=== PATIENT | female | born 2000 | race Caucasian/White ===

== ENCOUNTER 2022-06-18 14:15 | Emergency (ER) | payer BC ==
[~2022-06-18] VITALS: Ht 160 cm; Wt 111.1 kg
[2022-06-18 14:24] VITALS: BP 130/90
--- NOTE | 2022-06-18 14:38 | ED Abdominal Pain ---
General Chief Complaint: OB < 20 WEEKS Stated Complaint: | CRAMPING | ABD PAIN Nursing Triage Note: PT AMBULATORY TO ROOM WITH PT MOTHER. STATES SHE TOOK TESTS AT HOME LAST NIGHT AND TODAY, ALL POSITIVE. STATES SHE HAS BEEN HAVING LOW PELVIC CRAMPING FOR 1 WEEK THAT HAS GOTTEN WORSE. STATES SHE IS AT LEAST 5 WEEKS BUT STATES SHE COULD BE FURTHER ALONG DUE TO ABNORMAL MENSTRUAL CYCLES Source of Information: Patient Exam Limitations: No Limitations History of Present Illness Date Seen by Provider: Jun 18, 2022 Time Seen by Provider: 14:36 Initial Comments Patient is a 21-year-old female who is G1, P0 who presents ED for lower pelvic pain. She states she did a urine test last night which tested positive. Patient Went to [place] urgent care tested positive by urine. Patient reports intermittent sharp and dull lower pelvic pain since Tuesday. Pain appears to be located suprapubic and radiation to the left and right lower quadrant. Denies of any vaginal bleeding, vaginal discharge or urinary symptoms. She did have a negative urinalysis for infection today. Denies of any vomiting, diarrhea. She did feel nauseous. Denies chest pain, shortness of breath, sore throat, headache, dizziness. Patient last menstrual cycle was 1 month ago. Allergies and Home Medications Allergies Coded Allergies: No Known Drug Allergies (Unverified , 06/18/22) Patient Home Medication List Home Medication List Reviewed: Yes Review of Systems Review of Systems Constitutional: No chills, No diaphoresis, No malaise, No weakness EENTM: No Ear Pain, No Mouth Pain, No Mouth Swelling Respiratory: Denies Orthopnea Cardiovascular: Denies Chest Pain Gastrointestinal: Denies Abdomen Distended; Abdominal Pain Genitourinary: Denies Burning, Denies Discharge, Denies Drainage, Denies Frequency, Denies Flank Pain, Denies Hematuria Musculoskeletal: No back pain, No joint pain All Other Systems Reviewed Negative Unless Noted: Yes Physical Exam Vital Signs Vital Signs - First Documented 06/18/22 14:24 Temp 36.7 Pulse 71 Resp 16 B/P (MAP) 130/90 (103) Pulse Ox 98 Capillary Refill : Height/Weight/BMI Height: '" Weight: lbs. oz. kg; 43.00 BMI Method: General Appearance: WD/WN, no apparent distress HEENT: PERRL/EOMI, normal ENT inspection, TMs normal, pharynx normal Neck: non-tender, full range of motion, supple Respiratory: chest non-tender, lungs clear, normal breath sounds, no respiratory distress, no accessory muscle use Cardiovascular: regular rate, rhythm, no edema, no gallop, no JVD Gastrointestinal: normal bowel sounds, soft, no organomegaly, no pulsatile mass, tenderness (Suprapubic and left lower quadrant tenderness. Normal bowel sounds throughout) Extremities: normal range of motion, non-tender, normal inspection, no pedal edema Back: normal inspection, no CVA tenderness Neurologic/Psychiatric: custom grinder II-XII nml as tested, no motor/sensory deficits, alert, normal mood/affect, oriented x 3 Skin: normal color, warm/dry Progress/Results/Core Measures Results/Orders Lab Results Laboratory Tests Test 06/18/22 14:44 06/18/22 14:48 Range/Units Urine Color YELLOW Urine Clarity CLEAR Urine pH 6.0 5-9 Urine Specific [place] 1.015 L 1.016-1.022 Urine Protein NEGATIVE NEGATIVE Urine Glucose (UA) NEGATIVE NEGATIVE Urine Ketones NEGATIVE NEGATIVE Urine Nitrite NEGATIVE NEGATIVE Urine Bilirubin NEGATIVE NEGATIVE Urine Urobilinogen 0.2 < = 1.0 MG/DL Urine Leukocyte Esterase NEGATIVE NEGATIVE Urine RBC (Auto) TRACE-I H NEGATIVE Urine RBC 0-2 /HPF Urine WBC NONE /HPF Urine Squamous Epithelial Cells RARE /HPF Urine Crystals NONE /LPF Urine Bacteria NEGATIVE /HPF Urine Casts NONE /LPF Urine Mucus NEGATIVE /LPF Urine Culture Indicated NO Urine Test POSITIVE NEGATIVE White Blood Count 9.4 4.3-11.0 10^3/uL Red Blood Count 4.92 3.80-5.11 10^6/uL Hemoglobin 13.8 11.5-16.0 g/dL Hematocrit 42 35-52 % Mean Corpuscular Volume 86 80-99 fL Mean Corpuscular Hemoglobin 28 25-34 pg Mean Corpuscular Hemoglobin Concent 33 32-36 g/dL Red Cell Distribution Width 13.1 10.0-14.5 % Platelet Count 313 130-400 10^3/uL Mean Platelet Volume 9.4 9.0-12.2 fL Immature Granulocyte % (Auto) 0 % Neutrophils (%) (Auto) 59 42-75 % Lymphocytes (%) (Auto) 27 12-44 % Monocytes (%) (Auto) 8 0-12 % Eosinophils (%) (Auto) 5 0-10 % Basophils (%) (Auto) 0 0-10 % Neutrophils # (Auto) 5.5 1.8-7.8 X 10^3 Lymphocytes # (Auto) 2.5 1.0-4.0 X 10^3 Monocytes # (Auto) 0.8 0.0-1.0 X 10^3 Eosinophils # (Auto) 0.5 H 0.0-0.3 10^3/uL Basophils # (Auto) 0.0 0.0-0.1 10^3/uL Immature Granulocyte # (Auto) 0.0 0.0-0.1 10^3/uL Sodium Level 139 135-145 MMOL/L Potassium Level 3.9 3.6-5.0 MMOL/L Chloride Level 108 H 98-107 MMOL/L Carbon Dioxide Level 20 L 21-32 MMOL/L Anion Gap 11 5-14 MMOL/L Blood Urea Nitrogen 8 7-18 MG/DL Creatinine 0.65 0.60-1.30 MG/DL Estimat Glomerular Filtration Rate 128 BUN/Creatinine Ratio 12 Glucose Level 85 70-105 MG/DL Calcium Level 9.3 8.5-10.1 MG/DL Corrected Calcium 9.2 8.5-10.1 MG/DL Total Bilirubin 0.4 0.1-1.0 MG/DL Aspartate Amino Transf (AST/SGOT) 19 5-34 U/L Alanine Aminotransferase (ALT/SGPT) 18 0-55 U/L Alkaline Phosphatase 63 40-136 U/L Total Protein 7.0 6.4-8.2 GM/DL Albumin 4.1 3.2-4.5 GM/DL Lipase 17 8-78 U/L Human Chorionic Gonadotropin, Quant 109 H <5 MIU/ML Micro Results Microbiology 06/18/22 Wet Prep - Final, Complete My Orders Orders - ERIKA SHEPARD Ua Culture If Indicated (06/18/22 14:22) Hcg,Qualitative Urine (06/18/22 14:27) Cbc With Automated Diff (06/18/22 14:33) Comprehensive Metabolic Panel (06/18/22 14:33) Lipase (06/18/22 14:33) Hcg,Quantitative (06/18/22 14:33) Wet Prep (06/18/22 14:38) Neisseria Gonorrhea Swab (06/18/22 14:38) Chlamydia Trachomatis Swab (06/18/22 14:38) Us Ob<14 Wks Sngle W/Transvag (06/18/22 14:33) Acetaminophen Tablet (Tylenol Tablet) (06/18/22 16:30) Medications Given in ED Current Medications Medications Dose Ordered Sig/Vilma Route Start Time Stop Time Status Last Admin Dose Admin Acetaminophen 1,000 mg ONCE ONCE PO 06/18/22 16:30 06/18/22 16:30 DC 06/18/22 16:25 1,000 MG Vital Signs/I&O 06/18/22 14:24 Temp 36.7 Pulse 71 Resp 16 B/P (MAP) 130/90 (103) Pulse Ox 98 Blood Pressure Mean: 103 Departure Communication (PCP) Patient with lower pelvic discomfort since Tuesday. Intermittent dull/sharp pain suprapubic region with radiation to bilateral lower abdomen. No vaginal bleeding, urinary symptoms, vaginal discharge or concern for sexual transmitted infection. Patient Was sent to the ER from urgent care concerning for ectopic . Positive test last night and today at the clinic. Due to current complaint CBC, CMP, urinalysis, beta hCG levels were drawn. CBC and CMP grossly unremarkable. Beta quant 109. Urine without evidence of infection but did have trace red blood cell. To rule out potential PID pelvic swab was performed. She refused pelvic exam. She agreed to self swab. Wet mount unremarkable. Chlamydia and gonorrhea currently pending. She was not treated prophylactically. ultrasound was ordered to rule out ectopic secondary to the positive . Ultrasound was negative for intrauterine and ectopic . I recommend rechecking beta quant level in 2 days. Recommend recheck with ultrasound in the next 1 to 2 weeks. She was given Tylenol for pain. Discussed with family that this is early and common to be unremarkable especially early weeks. ultrasound did note a uterine fibroid which may be associated to some of her pain. Blood flow noted to the ovaries. She had no right lower quadrant tenderness suggesting other etiologies such as appendicitis. Normal white blood count and afebrile. Pelvic pain may be secondary to stretching of the uterus or hormonal changes. Once again she has no current abnormal vaginal bleeding suggesting threatened miscarriage. She does not appear in acute distress. she denies severe pain with her menstrual cycle. Did refer to [employer]. Discussed prenatals and Tylenol. Limited pain medication secondary to . Recommend returning back to the ED if increasing pain, fever. Impression Primary Impression: test positive Additional Impression: Pelvic pain Disposition: 01 HOME, SELF-CARE Condition: Stable Departure-Patient Inst. Decision time for Depature: 16:12 Referrals: NO,LOCAL PHYSICIAN (PCP) Primary Care Physician FIDENCIO MEJIA DO Patient Instructions: Pelvic Pain ED Add. Discharge Instructions: Recommend following up with your primary care physician and recheck of beta quant hCG level. level today 109. Recommend ultrasound in the next 1 to 2 weeks for reevaluation. Provided [employer] follow-up. Positive for . Ultrasound was negative for ectopic . Early in the and needing continue beta quant levels. All discharge instructions reviewed with patient and/or family. Voiced understanding. ERIKA SHEPARD Jun 18, 2022 14:38
[2022-06-18 14:55] LABS: BILIRUBIN,URINE NEGATIVE (NEGATIVE); CLARITY,URINE CLEAR; COLOR,URINE YELLOW; GLUCOSE, URINE (UA) NEGATIVE (NEGATIVE); KETONES,URINE NEGATIVE (NEGATIVE); LEUKOCYTE ESTERASE ,URINE NEGATIVE (NEGATIVE); NITRITE,URINE NEGATIVE (NEGATIVE); PROTEIN,URINE NEGATIVE (NEGATIVE)
[2022-06-18 15:00] LABS: BASOPHILS % (AUTO) 0 % (0-10); EOSINOPHILS # (AUTO) 0.5 10^3/uL (0.0-0.3); EOSINOPHILS % (AUTO) 5 % (0-10); HEMATOCRIT 42 % (35-52); HEMOGLOBIN 13.8 g/dL (11.5-16.0); LYMPHOCYTES # (AUTO) 2.5 X 10^3 (1.0-4.0); LYMPHOCYTES % (AUTO) 27 % (12-44); MEAN CORPUSCULAR HEMOGLOBIN 28 pg (25-34); MEAN CORPUSCULAR HGB CONC 33 g/dL (32-36); MEAN CORPUSCULAR VOLUME 86 fL (80-99); MEAN PLATELET VOLUME 9.4 fL (9.0-12.2); MONOCYTES # (AUTO) 0.8 X 10^3 (0.0-1.0); MONOCYTES % (AUTO) 8 % (0-12); NEUTROPHILS # (AUTO) 5.5 X 10^3 (1.8-7.8); NEUTROPHILS % (AUTO) 59 % (42-75); PLATELET COUNT 313 10^3/uL (130-400); WHITE BLOOD COUNT 9.4 10^3/uL (4.3-11.0)
[2022-06-18 15:10] LABS: ALBUMIN 4.1 GM/DL (3.2-4.5)
[2022-06-18 15:11] LABS: POTASSIUM 3.9 MMOL/L (3.6-5.0)
[2022-06-18 15:12] LABS: CALCIUM 9.3 MG/DL (8.5-10.1)
[2022-06-18 15:13] LABS: BACTERIA,URINE NEGATIVE /HPF; RBC,URINE 0-2 /HPF; SQUAMOUS EPITHELIAL CELL,UR RARE /HPF
[2022-06-18 15:15] LABS: BILIRUBIN,TOTAL 0.4 MG/DL (0.1-1.0)
[2022-06-18 15:17] LABS: CREATININE SERUM 0.65 MG/DL (0.60-1.30)
--- NOTE | 2022-06-18 15:32 | Diagnostic Imaging Report ---
US OB<14 wks sngle w/transvag INDICATION: Positive test with cramping. COMPARISON: None available. TECHNIQUE: Transabdominal and transvaginal sonographic imaging was performed. FINDINGS: Uterus measures 7.1 x 3.5 x 5.2 cm. The endometrium is homogeneous in echogenicity and thickened measuring 0.9 cm. There is no intrauterine gestational sac present. In the posterior aspect of the uterine body there is a isoechoic solid mass measuring 4.1 x 2.1 x 2.6 cm that is most likely an intramural fibroid. This does exert mild mass effect on the endometrium. The right ovary measures 3.7 x 2.1 x 2.2 cm. Thick-walled cyst within the left ovary is most compatible with a corpus luteum. Blood flow is present within the right ovary by color Doppler and spectral Doppler imaging. The left ovary measures 2.5 x 1.2 x 1.7 cm it is also physiologic in appearance. No concerning adnexal mass. Trace simple free pelvic fluid. IMPRESSION: No intrauterine or ectopic . Follow-up with beta hCG is advised. Dictated by: Dictated on workstation # [id number]
[2022-06-18] MEDS ORDERED: ACETAMINOPHEN 500 MG TAB (TYLENOL) PO ONE (16:30)
== END 2022-06-18 16:30 | disposition home or self-care (01) ==
LOC: ER 14:19
DX: O34.11 Maternal care for benign tumor of corpus uteri, first trimester (principal); Z3A.01 Less than 8 weeks gestation of pregnancy
CPT/HCPCS: 36415; 76801; 76817; 80053; 81000; 83690; 84702; 84703; 85025; 87210; 87491; 87591